=== PATIENT | male | born 2000 | race African-American/Black ===

== ENCOUNTER → 2020-07-19 | Outpatient (CLI) | payer OTHER ==
--- NOTE | 2020-07-19 10:34 | PFTRPT ---
Visit Date: 07/19/2020 Second ID: [id number] Referring Doctor: Anjum January Height: 72.00 Inches Weight: 210.00 Lbs BSA: 2.18 Diagnosis: DYSPNEA TECHNIQUE: Pre- and post-bronchodilator study of excellent technical quality. FINDINGS: Forced vital capacity is normal. FEV1 is in proportion of obstructive index; therefore, normal. FEV1 within the flow-volume loop is normal. No significant additional bronchodilator response identified. Total lung capacity normal; residual volume is in proportion. Diffusing capacity is normal. No hemoglobin is available for correction. Airway resistance and conductance are normal. IMPRESSION: Normal study. MTDD
== END ==
LOC: M CARPUL 09:46
PROVIDERS: ATTEND Physician Assistant
DX: R06.00 Dyspnea, unspecified (principal)

== ENCOUNTER 2020-10-29 05:23 | Emergency (ER) | payer OTHER ==
[~2020-10-29] VITALS: Ht 185.4 cm; Wt 99.1 kg
[2020-10-29 05:23] VITALS: BP 160/95
[2020-10-29] MEDS ORDERED: METAL LOCK LOOP XX ONE (05:45)
[2020-10-29] MEDS ORDERED: cefTRIAXone 500MG VIAL (J0696 PER 250MG) IM ONE (06:00)
[2020-10-29] MEDS ORDERED: LIDOCAINE 1% SDV 5ML VIAL DILUENT ONE (06:00)
[2020-10-29 08:29] LABS: CHLAMYDIA DNA AMPLIFICATION POSITIVE (NEGATIVE); GC DNA AMPLIFICATION POSITIVE (NEGATIVE)
[2020-10-29] MEDS ORDERED: DOXY100C37 PO (08:38)
== END 2020-10-29 06:15 | disposition home or self-care (01) ==
LOC: M ED 05:23
DX: Z20.2 Contact with and (suspected) exposure to infections with a predominantly sexual mode of transmission (principal); Z88.8 Allergy status to other drugs, medicaments and biological substances
CPT/HCPCS: 81001; 87086; 87491; 87591; 96372; 99282; J0696